=== PATIENT | male | born 1970 | race Caucasian/White ===

== ENCOUNTER 2016-02-24 05:44 | Emergency (ER) | payer OTHER ==
[2016-02-24] MEDS ORDERED: SODIUM CHLORIDE 1,000 ML IV STA ×2 (05:47→06:29)
[2016-02-24] MEDS ORDERED: KETOROLAC TROMETHAMINE 30 MG/1 ML VIAL IVPUSH ONE (05:47)
--- NOTE | 2016-02-24 05:48 | PDOC ---
[id number] FLANK PAIN Time Seen by Provider: 02/24/16 05:45 - History of Present Illness Initial Comments: 02/24/16 06:03 this 45-year-old man without significant past medical history presents with left CVA pain that awakened him at 2 AM today. Patient states that he was well and without symptoms during the day.he has not had any recent fever/vomiting/ diarrhea.pain was sudden and sharp; it has continued since then without change in location or severity despite taking Tylenol and Pyridium(OTC; uses for UTI symptoms). He has mild nausea; no vomiting.No history of dysuria/urgency or hematuria. No history of renal colic/stones. Positive family history of renal colic ( patient's mother) On no medications No known allergies Past History - Past Medical History Allergies/Adverse Reactions: Allergies Allergy/AdvReac Type Severity Reaction Status Date / Time No Known Allergies Allergy Verified 03/14/12 12:05 Home Medications: Ambulatory Orders No Home Medications 0 dose .ROUTE UTDICT 03/14/12 Pramoxine HCl/Mineral Oil/Znox [Anusol Ointment] 24 gm RC BID #1 oint...g. 03/14 Ciprofloxacin [Cipro -] 500 mg PO Q12H #6 tablet 02/24/16 Naproxen [Naprosyn -] 500 mg PO BID PRN #14 tablet 02/24/16 Oxycodone HCl/Acetaminophen [Percocet 5-325 mg Tablet -] 1 tab PO TID PRN #9 tablet MDD 3 02/24/16 Tamsulosin HCl [Flomax] 0.4 mg PO HS #10 capsule 02/24/16 - Psycho/Social/Smoking Cessation Hx Anxiety: No Suicidal Ideation: No Smoking Status: Yes Smoking History: Current every day smoker Number of Cigarettes Smoked Daily: 4 Review of Systems - Review of Systems Able to Perform ROS?: Yes Comments:: 12 point review of systems is negative except for what is noted in the history of present illness *Physical Exam - Physical Exam Comments: adult male, in moderate distress, secondary to left flank/CVA pain Vital signs as noted HEAD: No contusions, abrasions or lacerations of the scalp; no facial ecchymosis , deformities or tenderness EYES: Pupils equal, round and reactive to light, extraocular movements intact, sclera anicteric, conjunctiva clear PHARYNX: No erythema, exudate or edema; mucous membranes moist NECK: Supple, nontender, no masses or bruits LUNGS: Clear to auscultation bilaterally CARDIAC: S1, S2 normal; no extra sounds, rubs or murmurs heard ABDOMEN:Normoactive bowel sounds, nontender, no masses, no organomegaly mild left flank/CVA tenderness EXTREMITIES: Normal range of motion, no edema,deformity or tenderness NEUROLOGICAL: Cranial nerves II through XII grossly intact. Normal speech, normal gait.moving all 4 extremities equally, Sensation intact in all extremities. PSYCH: Normal mood, normal affect. SKIN: Warm, Dry, normal turgor, no rashes or lesions noted. ED Treatment Course - LABORATORY CBC & Chemistry Diagram: 02/24/16 05:50 02/24/16 05:50 Medical Decision Making - Medical Decision Making 02/24/16 06:57 Clinical presentation consistent with renal colic Patient had little relief from Toradol(30mg, IV) but significant relief from Dilaudid 1 mg IV 2 liters NS IV administered. Renal stone protocol CT performed . 02/24/16 07:09 Case signed out to incoming physician at end of shift *DC/Admit/Observation/Transfer Diagnosis at time of Disposition: Kidney stone on left side - Discharge Dispostion Disposition: HOME Condition at time of disposition: Improved - Prescriptions Prescriptions: Ciprofloxacin [Cipro -] 500 mg PO Q12H #6 tablet Tamsulosin HCl [Flomax] 0.4 mg PO HS #10 capsule Naproxen [Naprosyn -] 500 mg PO BID PRN #14 tablet PRN Reason: Pain Oxycodone HCl/Acetaminophen [Percocet 5-325 mg Tablet -] 1 tab PO TID PRN #9 tablet MDD 3 PRN Reason: Severe Pain - Patient Instructions Printed Discharge Instructions: DI for Kidney Stones Additional Instructions: Pop I am sorry that you had a kidney stone Please be sure to strain your urine, you should pass a small stone You need only take pain medications and Flomax until you pass the stone Please monitor yourself for fevers You should follow up with your primary care physician and a Urologist Please call today for appointments Please return to the ER for severe pain, inability to obtain or take medications , fevers, any other concerns or complaints - Post Discharge Activity Work/School Note: Back to Work
[2016-02-24] MEDS ORDERED: KETOROLAC TROMETHAMINE 30 MG/1 ML VIAL ONE (05:50)
[2016-02-24 06:03] VITALS: PULSE 72; TEMP 97.5; BMI 26.6
[2016-02-24] MEDS ORDERED: HYDROmorphone HCL CARPU-JECT 2 MG/1 ML DISP.SYRIN ONE (06:04)
[2016-02-24] MEDS ORDERED: HYDROmorphone HCL CARPU-JECT 1 MG/1 ML DISP.SYRIN IVPUSH ONE (06:05)
[2016-02-24 06:31] LABS: BASOPHIL 0.4 % (0-2.0); EOSINOPHIL 1.4 % (0-4.5); MCH 28.1 pg (25.7-33.7); MCHC 32.4 g/dl (32.0-35.9); MEAN CELL VOLUME 86.7 fl (80-96); MEAN PLT VOLUME 8.2 fl (7.5-11.1); NEUTROPHILS 70.8 % (42.8-82.8); PLATELET COUNT 337 K/MM3 (134-434); RDW 13.2 % (11.9-15.9); WHITE BLOOD COUNT 11.6 K/mm3 (4.0-10.0)
[2016-02-24 06:37] LABS: URINE APPEARANCE TURBID; URINE BILIRUBIN NEGATIVE (NEGATIVE); URINE COLOR DK. ORANGE; URINE GLUCOSE (UA) 1+ (NEGATIVE); URINE KETONE TRACE (NEGATIVE); URINE LEUK ESTERASE NEGATIVE (NEGATIVE); URINE UROBILINOGEN >=8.0 E.U./dl E.U./dl (0.2-1.0)
[2016-02-24 06:41] LABS: URINE BLOOD 3+ (NEGATIVE); URINE NITRITE POSITIVE (NEGATIVE); URINE PROTEIN 3+ (NEGATIVE)
[2016-02-24 06:52] LABS: URINE BACTERIA MODERATE /hpf (NONE SEEN); URINE MUCUS MANY; URINE RBC 5 /hpf (0-3); URINE WBC 2 /hpf (3-5)
[2016-02-24 07:13] LABS: ALBUMIN 4.1 g/dl (3.4-5.0); ALK PHOS 104 U/L (45-117); ANION GAP 9 (8-16); BILIRUBIN,TOTAL 0.6 mg/dL (0.2-1.0); CALCIUM 9.2 mg/dL (8.5-10.1); CO2 29 mmol/L (21-32); CREATININE 1.2 mg/dL (0.7-1.3); GLUCOSE,RANDOM 94 mg/dL (74-106); SGOT/AST 28 U/L (15-37); SGPT/ALT 56 U/L (12-78); TOT PROT 7.5 g/dl (6.4-8.2)
[2016-02-24] MEDS ORDERED: OXYCODONE/APAP 5/325MG COMBO TABLET PO ONE (07:34)
--- NOTE | 2016-02-24 07:34 | PDOC ---
*Physical Exam - Vital Signs Last Vital Signs Temp Pulse Resp BP Pulse Ox 97.5 F L 72 20 122/84 99 02/24/16 05:57 02/24/16 05:57 02/24/16 05:57 02/24/16 05:57 02/24/16 05:57 ED Treatment Course - LABORATORY CBC & Chemistry Diagram: 02/24/16 05:50 02/24/16 05:50 - ADDITIONAL ORDERS Additional order review: Laboratory Results 02/24/16 02/24/16 05:50 05:50 Sodium 139 Potassium 4.1 Chloride 101 Carbon Dioxide 29 Anion Gap 9 BUN 10 Creatinine 1.2 Creat Clearance w eGFR > 60 Random Glucose 94 Calcium 9.2 Total Bilirubin 0.6 AST 28 ALT 56 Alkaline Phosphatase 104 Total Protein 7.5 Albumin 4.1 Urine Color Dk. orange Urine Appearance Turbid Urine pH 5.0 Ur Specific [place] >= 1.030 Urine Protein 3+ H Urine Glucose (UA) 1+ H Urine Ketones Trace H Urine Blood 3+ H Urine Nitrite Positive Urine Bilirubin Negative Urine Urobilinogen >=8.0 e.u./dl Ur Leukocyte Esterase Negative Urine RBC 5 Urine WBC 2 Ur Epithelial Cells Rare Urine Bacteria Moderate Urine Mucus Many 02/24/16 05:50 RBC 6.05 H MCV 86.7 MCHC 32.4 RDW 13.2 MPV 8.2 Neutrophils % 70.8 Lymphocytes % 21.4 Monocytes % 6.0 Eosinophils % 1.4 Basophils % 0.4 - Medications Given in the ED: ED Medications Discontinued Medications Generic Name Dose Route Start Last Admin Trade Name Freq PRN Reason Stop Dose Admin Hydromorphone HCl 1 mg 02/24/16 06:05 02/24/16 06:08 Dilaudid Injection - IVPUSH 02/24/16 06:06 1 mg ONCE ONE Administration Sodium Chloride 1,000 mls @ 1,000 mls/hr 02/24/16 05:47 02/24/16 05:55 Normal Saline - IV 02/24/16 06:46 1,000 mls/hr ASDIR STA Administration Ketorolac Tromethamine 30 mg 02/24/16 05:47 02/24/16 05:55 Toradol Injection - IVPUSH 02/24/16 05:48 30 mg ONCE ONE Administration Medical Decision Making - Medical Decision Making 02/24/16 07:27 This is an otherwise healthy 45-year-old male presented to emergency department with a complaint of severe left flank pain that began just prior to arrival. No fever, no chills. Pain is intermittent. Patient took his 's Pyridium with no improvement He shouldn't given Toradol which minimally helped his pain. Given Dilaudid 1 mg which improved his symptoms. Laboratory Tests 02/24/16 02/24/16 02/24/16 05:50 05:50 05:50 WBC 11.6 H Hgb 17.0 H Hct 52.5 H Plt Count 337 BUN 10 Creatinine 1.2 Urine Blood 3+ H Urine Nitrite Positive Ur Leukocyte Esterase Negative Urine RBC 5 Urine WBC 2 Ur Epithelial Cells Rare Urine Bacteria Moderate Pending CT Brush Filler Hand: ([email or web address]) Begin of Report Content Referring Physician: Jory Vasquez Patient Name: Pop Marin THIS IS A PRELIMINARY REPORT FROM [facility] EXAM: CT evaluation of the abdomen & pelvis without contrast. IMAGES: 431. ~2mm calculus at the inner margin of the left UVJ associated with mild hydronephrosis/hydroureter, no appreciable perinephric stranding. There is incidental contralateral lower pole nephrolithiasis, these punctate in size. The evaluation is otherwise unremarkable. Impression: as above. THIS DOCUMENT HAS BEEN ELECTRONICALLY SIGNED Finesse Weston MD 02/24/2016 07:17 EST 02/24/16 07:28 CT demonstrates 2mm stone Will: Discharge to home on pain medications Will give Flomax Will ask pt to follow up with Urology Will give abx as pt UA demonstrates moderate bacteria (no epithelial cells) Return to the ER for any other concerns or complaints Follow up with PMD and Urology Clinical Impression: Ureterolithiasis *DC/Admit/Observation/Transfer Diagnosis at time of Disposition: Kidney stone on left side - Discharge Dispostion Disposition: HOME Condition at time of disposition: Improved Admit: No - Prescriptions Prescriptions: Ciprofloxacin [Cipro -] 500 mg PO Q12H #6 tablet Tamsulosin HCl [Flomax] 0.4 mg PO HS #10 capsule Naproxen [Naprosyn -] 500 mg PO BID PRN #14 tablet PRN Reason: Pain Oxycodone HCl/Acetaminophen [Percocet 5-325 mg Tablet -] 1 tab PO TID PRN #9 tablet MDD 3 PRN Reason: Severe Pain - Patient Instructions Printed Discharge Instructions: DI for Kidney Stones Additional Instructions: Pop I am sorry that you had a kidney stone Please be sure to strain your urine, you should pass a small stone You need only take pain medications and Flomax until you pass the stone Please monitor yourself for fevers You should follow up with your primary care physician and a Urologist Please call today for appointments Please return to the ER for severe pain, inability to obtain or take medications , fevers, any other concerns or complaints - Post Discharge Activity Work/School Note: Back to Work
[2016-02-24] MEDS ORDERED: OXYCODONE/APAP 5/325MG COMBO TABLET ONE (07:37)
[2016-02-24 07:43] VITALS: BP 121/70
== END 2016-02-24 07:45 | disposition home or self-care (01) ==
LOC: FER 05:44
PROC: 3E033NZ Introduction of Analgesics, Hypnotics, Sedatives into Peripheral Vein, Percutaneous Approach (ICD-10-PCS; principal; 2016-02-24)
PROC: 3E0333Z Introduction of Anti-inflammatory into Peripheral Vein, Percutaneous Approach (ICD-10-PCS; 2016-02-24)
PROC: 3E0337Z Introduction of Electrolytic and Water Balance Substance into Peripheral Vein, Percutaneous Approach (ICD-10-PCS; 2016-02-24)
DX: N20.0 Calculus of kidney (principal); F17.210 Nicotine dependence, cigarettes, uncomplicated
CPT/HCPCS: 36415; 74176; 80053; 81003; 81015; 85025; 96361; 96374; 96375; 99281-25